=== PATIENT | female | born 1965 ===

== ENCOUNTER 2017-02-15 10:39 | Emergency (ER) | payer OTHER ==
[2017-02-15 10:39] VITALS: BMI 32.8
[2017-02-15 10:45] VITALS: TEMP 97.7
--- NOTE | 2017-02-15 11:01 | C.PDOC ---
History Of Present Illness 51F c/o urinary frequency for the last month and suprapubic discomfort and "burning" which is worse right before she urinates for the last week. radiates to low back as well. also some incontinence x1 week when "coughing or sneezing. " denies fever, chills, nausea, vomiting, or other systemic sx. denies any other sig pmh. Time Seen by Provider: 02/15/17 10:51 Chief Complaint (Nursing): Female Genitourinary Past Medical History Vital Signs: Last Vital Signs Temp 97.7 F 02/15/17 10:41 Pulse 73 02/15/17 10:41 Resp 18 02/15/17 10:41 BP 120/82 02/15/17 10:41 Pulse Ox 100 02/15/17 11:01 Family History: States: Other - Social History Hx Tobacco Use: No Hx Alcohol Use: No Hx Substance Use: No - Immunization History Hx Tetanus Toxoid Vaccination: No Hx Influenza Vaccination: No Hx Pneumococcal Vaccination: No Review Of Systems Constitutional: Negative for: Fever, Chills, Sweats, Weakness, Malaise Cardiovascular: Negative for: Chest Pain Respiratory: Negative for: Shortness of Breath Gastrointestinal: Positive for: Abdominal Pain. Negative for: Nausea, Vomiting , Diarrhea, Melena Genitourinary: Positive for: Dysuria, Frequency. Negative for: Vaginal Discharge, Vaginal Bleeding Neurological: Negative for: Weakness, Numbness Physical Exam - Physical Exam Appears: Well, Non-toxic, No Acute Distress Skin: Warm, Dry Oral Mucosa: Moist Cardiovascular: Rhythm Regular Respiratory: No Accessory Muscle Use, No Rales, No Rhonchi, No Wheezing Gastrointestinal/Abdominal: Bowel Sounds, Soft, Tenderness (mild suprapubic), No Distention, No Guarding, No Rebound Neurological/Psych: Oriented x3, Other (no focal deficits) ED Course And Treatment O2 Sat by Pulse Oximetry: 100 Disposition - Disposition Disposition: HOME/ ROUTINE Disposition Time: 11:19 Condition: STABLE Forms: Gen Discharge Inst Mauritanian - Clinical Impression Clinical Impression: Bladder spasms
[2017-02-15 11:10] LABS: RBC URINE 1 /hpf (0-3); URINE BACTERIA RARE (<OCC); URINE BILIRUBIN NEGATIVE (NEGATIVE); URINE BLOOD NEGATIVE (NEGATIVE); URINE COLOR Yellow (YELLOW); URINE GLUCOSE (UA) NORMAL (Normal); URINE KETONE NEGATIVE (NEGATIVE); URINE LEUKOCYTE ESTERASE NEG Leu/uL (Negative); URINE PROTEIN NEGATIVE (NEGATIVE); URINE UROBILINOGEN NORMAL mg/dL (0.2-1.0); WBC URINE < 1 /hpf (0-5)
[2017-02-15 12:20] VITALS: BP 128/76; PULSE 88; RESP 20; O2SAT 99
== END 2017-02-15 11:45 | disposition home or self-care (01) ==
LOC: C.ER 10:39
DX: N32.89 Other specified disorders of bladder (principal)

== ENCOUNTER 2017-03-16 07:41 | Emergency (ER) | payer SELFPAY ==
[2017-03-16 07:41] VITALS: BMI 32.8
[2017-03-16 07:55] VITALS: BP 117/82; PULSE 71; RESP 20; TEMP 98.1; O2SAT 100
--- NOTE | 2017-03-16 08:24 | C.PDOC ---
History Of Present Illness 51-year-old female, presents to the emergency department with complaints of itching and redness to left eye since yesterday. Patient states that now her right eye is itchy, resulting in her coming to the emergency department for evaluation. Denies visual changes, trauma, fevers, chills, or any other associated symptoms. No other complaints at this time. Time Seen by Provider: 03/16/17 08:01 Chief Complaint (Nursing): Eye Problem History Per: Patient History/Exam Limitations: no limitations Onset/Duration Of Symptoms: Days Current Symptoms Are (Timing): Still Present Past Medical History Reviewed: Historical Data, Nursing Documentation, Vital Signs Vital Signs: Last Vital Signs Temp 98.1 F 03/16/17 07:48 Pulse 71 03/16/17 07:48 Resp 20 03/16/17 07:48 BP 117/82 03/16/17 07:48 Pulse Ox 100 03/16/17 09:23 - Medical History PMH: Denies: Chronic Kidney Disease Family History: States: No Known Family Hx - Social History Hx Tobacco Use: No Hx Alcohol Use: No Hx Substance Use: No - Immunization History Hx Tetanus Toxoid Vaccination: No Hx Influenza Vaccination: No Hx Pneumococcal Vaccination: No Review Of Systems Except As Marked, All Systems Reviewed And Found Negative. Constitutional: Negative for: Fever, Chills Eyes: Positive for: Redness Musculoskeletal: Negative for: Neck Pain, Back Pain Physical Exam - Physical Exam Appears: Non-toxic, No Acute Distress Skin: Warm, No Rash Head: Atraumatic, Normacephalic Eye(s): bilateral: PERRL, EOMI, Other (conjunctival injection) Nose: Normal Lips: Normal Appearing Neck: Normal ROM Extremity: Normal ROM Neurological/Psych: Oriented x3, Normal Speech, Normal Motor Gait: Steady ED Course And Treatment O2 Sat by Pulse Oximetry: 100 (on RA) Pulse Ox Interpretation: Normal Medical Decision Making Medical Decision Making: PAtient was instructed to not wear makeup during the eye infection and to wash hands often as this is contagious. Disposition - Disposition Referrals: Charly Mitchell MD [Staff Provider] - Tristin Gibson MD [Staff Provider] - Disposition: HOME/ ROUTINE Disposition Time: 08:20 Condition: GOOD Additional Instructions: Follow up with the Eye doctor within 1-2 days without fail. Return if worsened. Prescriptions: Moxifloxacin HCl [Vigamox 3 ml] 1 drop OU TID #1 amada Ofloxacin Ophth 0.3% [Ocuflox Ophth 0.3%] 1 drop OS Q4 #1 bottle Instructions: Conjunctivitis (ED) - POA Present On Arrival: None - Clinical Impression Clinical Impression: Conjunctivitis - Scribe Statement The provider has reviewed the documentation as recorded by the Damien Mandujano All medical record entries made by the Damien were at my direction and personally dictated by me. I have reviewed the chart and agree that the record accurately reflects my personal performance of the history, physical exam, medical decision making, and the department course for this patient. I have also personally directed, reviewed, and agree with the discharge instructions and disposition.
== END 2017-03-16 08:35 | disposition home or self-care (01) ==
LOC: C.ER 07:41
DX: H10.9 Unspecified conjunctivitis (principal)